=== PATIENT | female | born 1995 | race Two or more races ===

== ENCOUNTER → 2024-11-20 | Emergency (ER) | payer OTHER ==
[~2024-11-20] VITALS: Ht 149.9 cm; Wt 63.5 kg
[2024-11-20 11:38] LABS: HEMATOCRIT 38.8 % (36.0-45.00); HEMOGLOBIN 13.1 g/dL (12.0-15.00); MEAN CELL VOLUME 92.1 fL (80.00-100.00); MEAN CORPUSCULAR HEMOGLOBIN 31.1 pg (27.00-32.0); MEAN CORPUSCULAR HGB CONC 33.7 g/dl (32.0-36.0); PLATELET COUNT 345 K/uL (150-450); RED BLOOD COUNT 4.21 M/uL (4.00-6.00); RED CELL DISTRIBUTION WIDTH 13.1 % (11.5-14.5)
[2024-11-20 12:02] LABS: PH,URINE 5.5 (5.0-8.0); URINE APPEARANCE Cloudy; URINE BILIRRUBIN Negative (NEGATIVE); URINE BLOOD Moderate; URINE COLOR Orange; URINE GLUCOSE Negative (NEGATIVE); URINE KETONE Negative (NEGATIVE); URINE LEUKOCYTE Moderate; URINE NITRATE Positive; URINE PROTEIN 30 (NEGATIVE)
[2024-11-20 12:03] LABS: URINE BACTERIA 2053.5 uL (0.0-1933); URINE EPITHELIAL CELLS 13.1 uL (0.0-38.8); URINE RBC 32.5 uL (0.0-20.8); URINE WBC 814.7 uL (0.0-23.2)
[2024-11-20 12:42] LABS: URINE CAST 0.29 uL (0.0-1.40)
[2024-11-20 13:07] LABS: CALCIUM 9.1 mg/dL (8.5-10.1); CREATININE SERUM 0.8 mg/dL (0.55-1.02); GFR 85.41; POTASSIUM 3.61 mEq/L (3.5-5.1)
== END | disposition home or self-care (01) ==
LOC: ER 10:31
PROVIDERS: General Practice
DX: N39.0 Urinary tract infection, site not specified (principal); B96.20 Unspecified Escherichia coli [E. coli] as the cause of diseases classified elsewhere